=== PATIENT | female | born 1945 | race Caucasian/White ===

== ENCOUNTER → 2019-01-23 | Outpatient (CLI) | payer OTHER ==
--- NOTE | 2019-01-23 15:11 | PCVCIMAG ---
EXAM: VENOUS DUPLEX LEFT LOWER EXTREMITIES INDICATION: Leg pain and swelling. FINDINGS: Left leg: No thrombus in the common femoral, main femoral, or popliteal veins. These veins are compressible with phasic flow. Calf veins are unremarkable where seen. IMPRESSION: No evidence of deep venous thrombosis in the left lower extremity as detailed above. LOC:[id number]
--- NOTE | 2019-01-23 16:27 | PCVCIMAG ---
APPROVED REPORT Laterality: Bilateral Indications Stenosis Doppler Spectral Velocity Analysis PSV / EDVPSV / EDV ECA (R) 56 / 10 cm/sECA (L) 55 / 6 cm/s dICA (R) 44 / 15 cm/sdICA (L) 46 / 15 cm/s Abel (R) 46 / 16 cm/smICA (L) 69 / 25 cm/s pICA (R) 41 / 14 cm/spICA (L) 58 / 13 cm/s Bulb (R) 36 / 11 cm/sBulb (L) 54 / 15 cm/s dCCA (R) 57 / 16 cm/sdCCA (L) 62 / 15 cm/s mCCA (R) 54 / 14 cm/smCCA (L) 55 / 14 cm/s Vert (R) 36 / 9 cm/sVert (L) 30 / 9 cm/s ICA/CCA ICA/CCA Findings The right carotid bulb has mild plaque. The right proximal internal carotid artery shows no significant stenosis. The right common carotid artery shows no significant stenosis. The right external carotid artery shows no significant stenosis. The left carotid bulb has minimal plaque. The left proximal internal carotid artery shows no significant stenosis. The left common carotid artery shows no significant stenosis. The left external carotid artery shows no significant stenosis. Conclusion 1. Minimal bilateral plaquing without significant stenosis. 2. Antegrade vertebral flow.
== END | disposition home or self-care (01) ==
LOC: PCVCIMAG 14:08
PROVIDERS: ATTEND Internal Medicine Cardiovascular Disease
DX: I65.23 Occlusion and stenosis of bilateral carotid arteries (principal); I25.10 Atherosclerotic heart disease of native coronary artery without angina pectoris; E78.5 Hyperlipidemia, unspecified; R93.1 Abnormal findings on diagnostic imaging of heart and coronary circulation; I44.7 Left bundle-branch block, unspecified; E78.01 Familial hypercholesterolemia; I82.402 Acute embolism and thrombosis of unspecified deep veins of left lower extremity; I26.99 Other pulmonary embolism without acute cor pulmonale; D68.59 Other primary thrombophilia; Z79.899 Other long term (current) drug therapy; Z86.718 Personal history of other venous thrombosis and embolism
CPT/HCPCS: 93880; 93971

== ENCOUNTER → 2019-02-13 | Outpatient (CLI) | payer OTHER ==
[~2019-02-13] MED LIST: REGADENOSON 0.4 MG/5 ML DISP.SYRIN. IV ONE
--- NOTE | 2019-02-13 11:15 | PCVCIMAG ---
APPROVED REPORT Study performed: 02/13/2019 07:39:35 EXAM: Comprehensive 2D, Doppler, and color-flow Echocardiogram Patient Location: Echo lab Status: routine BSA: 1.62 HR: 70 bpmBP: 124/80 mmHg Rhythm: LBBB Other Information Study Quality: Adequate Indications Abnormal ECG Pulmonary Embolism LBBB, elevated coronary calcium score 2D Dimensions IVSd: 12.22 (7-11mm) LVDd: 41.61 mm PWd: 10.23 (7-11mm)Ascending Ao: 32.74 (22-36mm) LVDs: 34.27 (25-40mm) Left Atrium: 30.40 (27-40mm) Aortic Root: 32.95 mm LV Single Plane 4CH: 56.22 % LV Single Plane 2CH: 62.76 % Biplane EF: 60.2 % Volumes Left Atrial Volume (Systole) Single Plane 4CH: 23.32 mLSingle Plane 2CH: 43.34 mL LA ESV Index: 23.00 mL/m2 Aortic Valve AoV Peak Lenin.: 1.62 m/s AO Peak Gr.: 10.54 mmHgLVOT Max P.70 mmHg LVOT Max V: 0.82 m/s Mitral Valve E/A Ratio: 0.6 MV Decel. Time: 299.43 ms MV E Max Lenin.: 0.63 m/s MV A Lenin.: 0.97 m/s IVRT: 134.95 ms Pulmonary Valve PV Peak Lenin.: 1.11 m/sPV Peak Gr.: 4.94 mmHg Pulmonary Vein P Vein S: 0.26 m/sP Vein A: 0.34 m/s P Vein D: 0.36 m/sP Vein A Dur.: 131.5 msec P Vein S/D Ratio: 0.72 Tricuspid Valve TR Peak Lenin.: 2.71 m/s TR Peak Gr.: 29.31 mmHg Left Ventricle The left ventricle is normal size. There is normal left ventricular wall thickness. Left ventricular systolic function is normal. Discordant septal motion consistent with LBBB. The left ventricular ejection fraction is within the normal range. LVEF is 55%. Grade I - abnormal relaxation pattern. Right Ventricle The right ventricle is normal size. The right ventricular systolic function is normal. Atria The left atrium size is normal. The right atrium size is normal. Aortic Valve The aortic valve is normal in structure. Trace aortic regurgitation. There is no aortic valvular stenosis. Mitral Valve The mitral valve is normal in structure. Trace mitral regurgitation. No evidence of mitral valve stenosis. Tricuspid Valve The tricuspid valve is normal in structure. Mild tricuspid regurgitation with PAP of 36 mmHg. Pulmonic Valve The pulmonary valve is normal in structure. There is no pulmonic valvular regurgitation. Great Vessels The aortic root is normal in size. IVC is normal in size and collapses >50% with inspiration. Pericardium There is no pericardial effusion. There is no pleural effusion. <Conclusion> The left ventricle is normal size. Left ventricular systolic function is normal. Discordant septal motion consistent with LBBB. The left ventricular ejection fraction is within the normal range. LVEF is 55%. Grade I - abnormal relaxation pattern. The right ventricle is normal size. The left atrium size is normal. The left atrium size is normal. Trace aortic regurgitation. Trace mitral regurgitation. Mild tricuspid regurgitation with PAP of 36 mmHg. The aortic root is normal in size. There is no pericardial effusion.
--- NOTE | 2019-02-13 15:16 | PCVCIMAG ---
APPROVED REPORT Imaging Protocol: Rest Tc-99m/Stress Tc-99m 1 day Study performed: 02/13/2019 08:59:12 Indication: CAD, Calcium Score Patient Location: Out-Patient Stress Nurse: Randa Lyn RN [place] Tech:Domonique German [facility] Ht: 5 ft 2 in Wt: 136 lbs BSA: 1.62 m2 HR: 69 bpm BP: 141/74 mmHg BMI: 24.8 Rhythm: Sinus Rhythm, Left Bundle Branch Block Medical History Medical History: CAD, Ca+ Score, Age, Hyperlipidemia, CVD, LBBB Medications: Zetia, Xarelto, Crestor Allergies: No known drug allergies Pretest Chest Pain Characteristics: No chest pain Exercise History: Indeterminate Physical Disabilities: Knee Resting Data Rest SPECT myocardial perfusion imaging was performed in supine position 45 minutes following the intravenous injection of 10.1 mCi of Tc-99m Sestamibi. Time of rest injection: 829 Date: 02/13/2019 Administration Route: IV Administration Site: Right AC Pharmacologic Stress Pharmacologic stress test was performed by injecting Regadenoson 0.4 mg IV push over 10-15 seconds immediately followed by the intravenous injection of 33.9 mCi of Tc-99m Sestamibi. Time of stress injection: 944 Date: 02/13/2019 Administration Route: IV Administration Site: Right AC Gated Stress SPECT was performed 45 minutes after stress injection. The images were gated to evaluate regional wall motion and calculate left ventricular ejection fraction. Stress Test Details Stress Test: Pharmacologic stress testing performed using 0.4 mg of regadenoson per 5 mL given IV over 10 seconds. Reason for pharmacologic stress test: LBBB, Knee Injury. HRMax Heart Rate (APMHR): 146 bpm Resting HR: 69 bpmTarget HR (85% APMHR): 124 bpm Max HR Achieved: 107 bpm % of APMHR: 73 Recovery HR: 92 bpm BP Resting BP: 141/74 mmHg Max BP: 144/78 mmHg Recovery BP: 160/87 mmHg ECG Resting ECG: Sinus Rhythm, LBBB Stress ECG: Sinus Rhythm, LBBB Arrhythmia: None Recovery ECG: Sinus Rhythm, LBBB Clinical Reason for Termination: Completed protocol Stress Symptoms: Dizzy, Chest Pressure Symptoms resolved with caffeine. Stress ECG Conclusion non diagnostic LBBB Study Quality Study: Good Study Data Post stress, the left ventricular ejection was 69%.. SSS: 1 SRS: 6 SDS: 0 TID = 0.97. Perfusion No evidence of stress induced ischemia or prior myocardial infarction. Wall Motion Normal left ventricular size and function with no regional wall motion abnormalities. Nuclear Conclusion No evidence of stress induced ischemia or prior myocardial infarction. Normal left ventricular size and function with no regional wall motion abnormalities. Post stress, the left ventricular ejection was 69%. No prior study available for comparison. Interpreted by: Michael Vega MD Electronically Approved: 02/13/2019 11:50:25 <Conclusion> non diagnostic LBBB
== END | disposition home or self-care (01) ==
LOC: PCVCIMAG 08:27
PROVIDERS: ATTEND Internal Medicine Cardiovascular Disease
DX: I07.1 Rheumatic tricuspid insufficiency (principal); I26.99 Other pulmonary embolism without acute cor pulmonale; I44.7 Left bundle-branch block, unspecified; R93.1 Abnormal findings on diagnostic imaging of heart and coronary circulation
CPT/HCPCS: 78452; 93017; 93306; A9500; J2785